=== PATIENT | female | born 1985 | race Hispanic/Latino ===

== ENCOUNTER 2019-12-23 09:39 | Emergency (ER) | payer SELFPAY ==
--- NOTE | ~2019-12-23 | XR_ITS ---
EXAMINATION: XR chest 1V portable DATE: 12/23/2019 10:55 INDICATION: Cough and dyspnea TECHNIQUE: frontal view of the chest was obtained. COMPARISON: None FINDINGS: Mild perihilar and basilar interstitial and subtle airspace opacities. Calcified nodule in the right midlung zone consistent with old granulomatous disease. No pleural effusion or pneumothorax. The card iomediastinal silhouette is normal. Visualized bones and soft tissues are unremarkable. IMPRESSION: 1. Mild opacities in the perihilar regions and lower lung zones which could represent mild pulmonary edema or pneumonia. Reviewed, dictated and finalized at location A. IMPRESSION: 1. Mild opacities in the perihilar regions and lower lung zones which could rep resent mild pulmonary edema or pneumonia.
--- NOTE | 2019-12-23 10:07 | ED.URI ---
HPI - URI/Sore Throat General Chief Complaint: Upper Respiratory Infection Stated Complaint: COUGH Time Seen by Provider: 12/23/19 09:54 Source: patient and RN notes reviewed Mode of arrival: ambulatory Limitations: no limitations History of Present Illness HPI Narrative: Pt is a 34 y/o female who presents to the ED with c/o flu-like symptoms starting 2 days ago. She notes that she has had a productive cough, sore throat, rhinorrhea, and body aches. Pt states that she has also had difficulty breathing due to her cough and sore throat. She denies any fever, CP, or palpitations. Pt states that her children and spouse are currently sick at home. She notes that she hasn't had any recent travel outside of the country. MD elicited complaint: other (Flu-like symptoms) Onset (ago): day(s) (2) Context: sick contacts Associated symptoms: rhinorrhea, sore throat, cough (productive) and other (body aches; difficulty breathing) Treatments prior to arrival: none Related Data Allergies Allergy/AdvReac Type Severity Reaction Status Date / Time No Known Allergies Allergy Verified 12/23/19 10:25 Review of Systems Review of Systems: Narrative: CONSTITUTIONAL: Denies fever, chills, or sweats. Reports body aches. EYES: Denies visual changes, redness, or discharge. ENT: Reports sore throat and rhinorrhea. Denies otalgia. CARDIOVASCULAR: Denies chest pain, palpitations, or edema. RESPIRATORY: Reports productive cough and difficulty breathing. GASTROINTESTINAL: Denies abdominal pain, nausea, vomiting, or diarrhea. All systems reviewed & are unremarkable except as noted in HPI and below PMFSH Past Medical History Medical History Healthy female adult Surgical History Surgical History Hx of section Hx of cholecystectomy Social History Social History Smoking status: Unknown if ever smoked Gender identity (if verbalized by the patient): Female Exam Narrative: Exam Narrative: GENERAL: Well-appearing, well-nourished, and in no acute distress. HEAD: Normocephalic, atraumatic. EYES: PERRLA and EOMI. ENT: Nares congestion and rhinorrhea. No epistaxis. Mucous membranes moist. Oropharynx clear. NECK: Supple. CHEST: No respiratory distress. HEART: Regular rate and rhythm. No murmur heard. Normal peripheral pulses. ABDOMEN: Soft, nontender, nondistended, normal active bowel sounds. EXTREMITIES: Normal range of motion. No edema. SKIN: Warm, dry, no rash. NEURO: No focal deficits. Alert and oriented. Course Course Emergency Course: Patient presented for evaluation of cough, congestion and myalgias. At the time of initial assessment, ABCs are intact and vital signs are stable. Physical examination shows no respiratory distress. Patient is not hypoxic. Laboratory results show no lymphopenia. Mild transaminitis. Chest x-ray concerning for bilateral pneumonia in the lower lung zones. Patient does not currently meet criteria Histine criteria for close mid 19 given no severe features no hypoxemia. Patient was ambulated without decrease in oxygen saturation or decompensation. Patient was discharged home, advised to quarantine for 14 days, limit contact except for immediate relatives who she lives in a house with. I also explained to her that they should self quarantine. Patient was advised to return should she have shortness of breath or worsening symptoms. Vital Signs Vital signs: Vital Signs Temperature 36.8 C 12/23/19 10:15 Pulse Rate 73 12/23/19 10:15 Respiratory Rate 18 12/23/19 10:15 Blood Pressure 128/73 12/23/19 10:15 Pulse Oximetry 100 12/23/19 10:15 Temperature 36.8 C 12/23/19 10:15 Pulse Rate 73 12/23/19 10:15 Respiratory Rate 18 12/23/19 10:15 Blood Pressure 128/73 12/23/19 10:15 Pulse Oximetry 100 12/23/19 10:15 MDM - URI/Sore Throat Lab Data
--- NOTE | 2019-12-23 10:08 | ECG_ITS ---
Measurements Intervals [place] Rate: 73 P: 59 [place]: 138 QRS: 51 QRSD: 88 T: 38 QT: 389 QTc: 429 Interpretive Statements SINUS RHYTHM MINIMAL Q WAVES- INFERIOR LEADS BASELINE ARTIFACT- I, III, AVL BORDERLINE ECG Electronically Signed On 12-23-2019 10:57:17 CDT by Franky Davis D.O.
[2019-12-23 10:15] VITALS: BP 128/73; PULSE 73; RESP 18; TEMP 36.8; O2SAT 100
[2019-12-23 10:32] LABS: Alveolar/Arterial O2 Gradient 10.6 mmHg; Base Excess ABG -0.9 mEq/l (+/-2.0); Carboxyhemoglobin 0.2 % THb (0-2.0); Device ROOM AIR; Fractional Inspired Oxygen 21 %; HCO3 ABG 24.2 mEq/l (22.0-26.0); Methemoglobin ABG 0.1 %THb (0-1.5); Modified Allen's Test Pass; Oxygen Content ABG 20.3 %vol (16.0-22.0); Oxygen Saturation ABG 96.7 % (95.0-100.0); Oxyhemoglobin 95.8 % THb (90.0-100.0); PCO2 ABG 41.6 mmHg (35.0-45.0); PO2 ABG 89.3 mmHg (80.0-100.0); PO2 FiO2 Ratio Arterial Blood 4.25 %; Reduced Hemoglobin 3.9 %THb (0-5.0); Site Drawn RIGHT RADIAL; pH ABG 7.382 (7.350-7.450)
[2019-12-23] MEDS: ACETAMINOPHEN 500 MG TABLET 1000 MG PO (10:35)
[2019-12-23 10:39] LABS: Basophils Percent Auto 0.4 % (0.2-1.2); Eosinophils Absolute Auto 0.1 K/mm3 (0-0.3); Eosinophils Percent Auto 2.4 % (0-4.4); Hematocrit 42.9 % (37.0-47.0); Hemoglobin 14.9 g/dL (12.0-15.0); Immature Granulocyte Absolute 0.01 K/mm3 (0.00-0.031); Immature Granulocyte Percent A 0.2 % (0-0.5); Lymphocytes Absolute Auto 1.48 K/mm3 (0.9-3.2); Lymphocytes Percent Auto 32.6 % (18.3-44.2); Mean Corpuscular HGB Conc 34.7 g/dl (32-36); Mean Corpuscular Hemoglobin 31.6 pg (26-34); Mean Corpuscular Volume 91.1 fl (80-100); Mean Platelet Volume 9.8 fl (7.4-10.4); Monocytes Absolute Auto 0.3 K/mm3 (0.1-0.6); Monocytes Percent Auto 5.7 % (2.6-8.5); Neutrophils Absolute Auto 2.7 K/mm3 (1.3-6.7); Neutrophils Percent Auto 58.7 % (45.5-73.1); Platelet Count Result 228 k/mm3 (150-375); Red Blood Count 4.71 M/mm3 (4.2-5.4); Red Cell Distribution Width 11.7 % (11.5-14.5); White Blood Count 4.5 K/mm3 (4.5-10.0)
[2019-12-23 10:43] LABS: Alanine Aminotransferase 50 U/L (4-35); Albumin Level 4.5 g/dL (3.5-5.1); Alkaline Phosphatase 99 U/L (38-126); Aspartate Amino Transferase 37 U/L (14-36); Bilirubin,Total 0.4 mg/dL (0.2-1.3); Blood Urea Nitrogen 6 mg/dL (7-17); Carbon Dioxide 27 mmol/L (22-30); Chloride 107 mmol/L (98-107); Estimated CRCL calculation 107 ml/min; Estimated Glomerular Filt Rate > 60; Glucose 100 mg/dL (65-105); Sodium 139 mmol/L (137-145)
[2019-12-23 10:50] LABS: Partial Thromboplastin Time 33.2 SECONDS (22.3-36.8); Prothrombin Time 13.2 Seconds (11.1-14.7)
[2019-12-23 10:54] LABS: Troponin I < 0.012 ng/mL (0.000-0.034)
--- NOTE | 2019-12-23 11:05 | PC.NURSE ---
Report to FERNANDEZ Chavez to continue care.
[2019-12-23 11:18] VITALS: PULSE 90; RESP 20; O2SAT 99
[2019-12-23 11:36] VITALS: BP 106/78; PULSE 80; RESP 18; TEMP 36.3; O2SAT 99
== END 2019-12-23 11:42 | disposition home or self-care (01) ==
PROVIDERS: Emergency Provider Emergency Medicine; PCP Registered Nurse
DX: J18.9 Pneumonia, unspecified organism (principal); R94.31 Abnormal electrocardiogram [ECG] [EKG]
CPT/HCPCS: 36415; 36600; 71045; 80053; 82375; 82805; 83050; 84484; 85025; 85610; 85730; 87081; 87804; 87880; 93005; 99284; A9270

== ENCOUNTER 2022-05-09 16:42 | Emergency (ER) | payer OTHER, SELFPAY ==
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
[2022-05-09 16:53] VITALS: BP 110/60; PULSE 88; TEMP 36.9; O2SAT 100
--- NOTE | 2022-05-09 17:11 | PC.NURSE ---
Pt refused any ct scans, pt just wants to make sure baby is ok.
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
== END 2022-05-09 18:52 | disposition home or self-care (01) ==
PROVIDERS: Emergency Provider Emergency Medicine; PCP Registered Nurse
DX: T23.112A Burn of first degree of left thumb (nail), initial encounter (principal); O9A.211 Injury, poisoning and certain other consequences of external causes complicating pregnancy, first trimester; R10.9 Unspecified abdominal pain; W22.10XA Striking against or struck by unspecified automobile airbag, initial encounter; Z3A.10 10 weeks gestation of pregnancy
CPT/HCPCS: 76801; 99284

== ENCOUNTER 2022-07-08 17:40 | Emergency (ER) | payer MEDICAID, SELFPAY ==
[2022-07-08 17:43] VITALS: BP 102/48; PULSE 78; RESP 18; TEMP 36.4; O2SAT 100
--- NOTE | 2022-07-08 18:11 | ED.DENTAL ---
HPI - Dental/Oral General Chief complaint: Dental/Oral Stated complaint: toothache Time Seen by Provider: 07/08/22 17:46 Source: RN notes reviewed History of Present Illness HPI Narrative: Patient presents emergency room from home for dental pain. Patient states she is had pain in her left upper tooth for many months and has a carious tooth down to the gum states the pain became worse 2 days ago she states that the pain radiates into the jaw she denies any fevers or chills she denies any shortness of breath she has been taking Tylenol for the pain at home she is currently 18 months is followed with [facility] she denies any abdominal pain or vaginal bleeding . Patient states she took Tylenol at 3:00 Stratus was used for entire H&P Related Data Allergies Allergy/AdvReac Type Severity Reaction Status Date / Time No Known Allergies Allergy Verified 07/08/22 17:56 Review of Systems Review of Systems: Gen.: Denies fevers or chills HEENT l: See HPI Neuro: Denies numbness, tingling, weakness Skin: Denies rash Endo: Denies DM PMFSH Past Medical History Medical History Healthy female adult Surgical History Surgical History Hx of section Hx of cholecystectomy Social History Social History Smoking status: Unknown if ever smoked Gender identity (if verbalized by the patient): Female Exam Narrative: APPEARANCE: No acute distress, nontoxic, resting in bed HEENT: Normocephalic, atraumatic, TMs clear bilaterally, nares patent, oral mucosa moist, airway patent, tooth #11 is carious down to the gum and tender mild erythema of the gum there is several other carious teeth Supple nontender RESPIRATORY: No respiratory distress MUSCULOSKELETAl: Moves all extremities. NEURO: Awake and alert. Following commands, speech normal, no focal deficits SKIN:: Warm, dry. Normal Color PSYCHIATRIC: Normal affect/mood Course Course Emergency Course: Discussed with patient results of workup and diagnosis. Discussed need for follow-up with primary care, proper use of medication, and reasons to return to the emergency department. Patient understands and agrees to current treatment plan. Did discuss with patient given possible narcotic in ED she would like to try narcotic Vital Signs Vital signs: Vital Signs Temperature 97.6 F 07/08/22 17:43 Pulse Rate 78 07/08/22 17:43 Respiratory Rate 18 07/08/22 17:43 Blood Pressure 102/48 L 07/08/22 17:43 Pulse Oximetry 100 07/08/22 17:43 Oxygen Delivery Room Air 07/08/22 17:43 Temperature 97.6 F 07/08/22 17:43 Pulse Rate 78 07/08/22 17:43 Respiratory Rate 18 07/08/22 17:43 Blood Pressure 102/48 L 07/08/22 17:43 Pulse Oximetry 100 07/08/22 17:43 Oxygen Delivery Room Air 07/08/22 17:43 Discharge Plan Discharge Clinical Impression: Dental caries, Toothache Patient Disposition: Home, Self-Care Condition: Stable Instructions: Antibiotic Form, Toothache (ED) Additional Instructions: Return for increasing pain or any other symptoms of concern. Take [id number] Tylenol for pain as directed on bottle Prescriptions: New penicillin V potassium 500 mg tablet 500 mg PO Q8H 10 Days Qty: 30 0RF No Action acetaminophen 500 mg capsule 500 mg PO Q6H PRN (Reason: fever or pain) Qty: 30 0RF doxycycline hyclate 100 mg capsule 100 mg PO Q12H 10 Days Qty: 20 0RF albuterol sulfate 90 mcg/actuation aero powdr breath act w/sensor 1 inh INHALATION Q4-6H PRN (Reason: shortness of breath or wheezing) Qty: 1 0RF Follow-up/Referrals: [facility] [Outside] - 1 Day [facility] [Outside] - 1 Day Mitchell,SUSHMA Franklin [Primary Care Provider] - Stand Alone Forms: Work/School Release IP Time of Disposition: 18:14
[2022-07-08] MEDS: PENICILLIN V POTASSIUM 250 MG TABLET 500 MG PO (18:23)
[2022-07-08] MEDS: traMADol HCL (*CRX) 50 MG TABLET PO (18:24)
== END 2022-07-08 18:35 | disposition home or self-care (01) ==
PROVIDERS: Emergency Provider Emergency Medicine
DX: K02.9 Dental caries, unspecified (principal)
CPT/HCPCS: 99283; A9270

== ENCOUNTER 2022-07-19 23:02 | Emergency (ER) | payer MEDICAID, SELFPAY ==
[2022-07-19 23:03] VITALS: BP 149/99; PULSE 90; RESP 20; TEMP 36.4; O2SAT 100
--- NOTE | 2022-07-20 | ED.GENADULT ---
HPI - General Adult General Chief complaint: Unspecified <Lisa Anne PA-C - Last Filed: 07/20/22 00:13> Stated complaint: toothache <Lisa Anne PA-C - Last Filed: 07/20/22 00:13> Time Seen by Provider: 07/19/22 23:28 <Lisa Anne PA-C - Last Filed: 07/20/22 00:13> History of Present Illness HPI narrative: Patient is a 37-year-old female here for evaluation of left upper dental pain. States the pain is there all the time and is worse with food and fluids. Patient has been seen in the ED and also by her primary care provider and is currently on a course of Augmentin. She has also been taking Tylenol [id number] without significant relief of her pain. Patient does not have a dentist. She is currently 8 months . 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 She denies any vaginal bleeding, abdominal pain, sudden gush of fluids. <Lisa Anne PA-C - Last Filed: 07/20/22 00:13> Related Data Allergies/adverse reactions: Allergies Allergy/AdvReac Type Severity Reaction Status Date / Time No Known Allergies Allergy Verified 07/08/22 17:56 <Lisa Anne PA-C - Last Filed: 07/20/22 00:13> Review of Systems Review of Systems: Gen: Denies fevers or chills Eyes: Denies eye pain or visual change ENT: Reports dental pain. Respiratory: Denies shortness of breath or cough CV: Denies chest pain or palpitations GI: Denies abdominal pain nausea, emesis or diarrhea : denies burning, urgency, frequency or hematuria Musculoskeletal: Denies back pain or muscle pain Neuro: Denies numbness, tingling, weakness or focal weakness Skin: Denies rash Except as documented, all other systems reviewed and negative <Lisa Anne PA-C - Last Filed: 07/20/22 00:13> PMFSH Past Medical History Medical History: Medical History Healthy female adult <Lisa Anne PA-C - Last Filed: 07/20/22 00:13> Surgical History Surgical History: Surgical History Hx of section Hx of cholecystectomy <Lisa Anne PA-C - Last Filed: 07/20/22 00:13> Social History Social History: Social History Smoking status: Unknown if ever smoked Gender identity (if verbalized by the patient): Female <Lisa Anne PA-C - Last Filed: 07/20/22 00:13> Exam Narrative: APPEARANCE: Uncomfortable appearing. EYES: EOMI HEENT: Numerous dental caries noted throughout mouth. Tooth #11 is cracked and has a dental carry. She has no trismus or submandibular swelling. RESPIRATORY: No respiratory distress Clear to auscultation bilaterally with no rhonchi wheezing or rales. CARDIOVASCULAR: Regular rate and rhythm without murmurs rubs or gallops. ABDOMINAL: Gravid uterus. Soft, nontender, nondistended, no rebound or guarding MUSCULOSKELETAL: Moves all extremities. No clubbing, cyanosis or edema. NEURO: Awake and alert. Following commands, speech normal, no focal deficits SKIN:: Warm, dry. No rashes lesions or abrasions PSYCHIATRIC: Normal affect/mood, <Lisa Anne PA-C - Last Filed: 07/20/22 00:13> Course CATTLE EXAMINER/PA Physician Supervision I discussed this patient with DEMARCO Anne. I agree with the assessment and plan as documented. <Anton Rose MD - Last Filed: 07/20/22 11:25> Vital Signs Vital signs: Vital Signs Temperature 97.6 F 07/19/22 23:03 Pulse Rate 90 07/19/22 23:03 Respiratory Rate 20 07/19/22 23:03 Blood Pressure 149/99 H 07/19/22 23:03 Pulse Oximetry 100 07/19/22 23:03 Oxygen Delivery Room Air 07/19/22 23:03 Temperature 97.6 F 07/19/22 23:03 Pulse Rate 90 07/19/22 23:03 Respiratory Rate 20 07/19/22 23:03 Blood Pressure 149/99 H 07/19/22 23:03 Pulse Oximetry
[2022-07-20] MEDS: LIDOCAINE HCL 2% JELLY 5 ML TUBE 1 APPLIC MUCOUS MEM (00:23)
== END 2022-07-20 00:52 | disposition home or self-care (01) ==
PROVIDERS: Emergency Provider Preventive Medicine Aerospace Medicine
DX: K02.9 Dental caries, unspecified (principal); O99.613 Diseases of the digestive system complicating pregnancy, third trimester; Z3A.00 Weeks of gestation of pregnancy not specified
CPT/HCPCS: 99281